=== PATIENT | female | born 1990 | race Caucasian/White ===

== ENCOUNTER → 2017-02-28 17:52 | Observation (INO) ==
[2017-02-28 16:50] LABS: Basophils % 0.2 %; Eosinophils # 0.2 K/mcL (0.0-0.6); Eosinophils % 1.2 %; Hematocrit 32.6 % (35.3-44.9); Hemoglobin 11.2 g/dL (11.5-15.4); Immature Granulocytes % 0.4 % (0-4); Lymphocytes # 2.4 K/mcL (0.6-4.6); Lymphocytes % 20.2 %; Mean Corpuscular HGB Conc 34.4 g/dL (31.6-35.5); Mean Corpuscular Hemoglobin 29.6 pg (28.0-33.3); Mean Platelet Volume 9.6 fL (9.4-12.4); Monocytes # 0.7 K/mcL (0.0-1.3); Monocytes % 5.7 %; Neutrophils # 8.7 K/mcL (1.6-8.9); Platelet Count 219 K/mcL (140-400); Red Blood Count 3.79 M/mcL (3.82-4.97); Red Cell Distribution Width 12.3 % (11.5-14.5); Segmented Neutrophils % 72.3 %
[2017-02-28 17:07] LABS: Alanine Aminotransferase 17 Units/L (0-55); Aspartate Amino Transferase 19 Units/L (5-34); BUN/Creatinine Ratio 16 (6-26); Blood Urea Nitrogen 9 mg/dL (7-20); Lactate Dehydrogenase 188 Units/L (159-327); Uric Acid 2.4 mg/dL (2.6-6.0); eGFR For African Americans > 60 (> 60); eGFR For Non-African Americans > 60 (> 60)
[2017-02-28 17:08] LABS: Protein/Creatinine Ratio,Urine 0.33 mg/mg (0-0.20)
[2017-02-28 17:28] LABS: Amphetamine Screen,Urine Negative ng/mL (Cutoff=1000); Barbiturate Screen,Urine Negative ng/mL (Cutoff=200); Benzodiazepines Screen,Urine Negative ng/mL (Cutoff=200); Cannabinoid Screen,Urine Negative ng/mL (Cutoff = 50); Cocaine Screen,Urine Negative ng/mL (Cutoff= 300); Opiate Screen,Urine Negative ng/mL (Cutoff=300); Phencyclidine Screen,Urine Negative ng/mL (Cutoff=25)
--- NOTE | 2017-02-28 17:35 | OB/GYN Progress Note ---
Date of Encounter: 02/28/17 Time of Encounter: 17:30 - Assessment and Plan (1) First in adolescent 16 years of age or older in third trimester Current Visit: Yes Status: Acute (2) 34 weeks gestation of Current Visit: Yes Status: Acute (3) Hypertension affecting in third trimester Current Visit: Yes Status: Acute Blood pressures stable PIH labs within normal limits patient will do serial blood pressures at home and will call if anything elevated. Subjective - Subjective Interval history: Patient is a 27-year-old 1 para 0 at 34 weeks who had been sent over from the office due to elevated blood pressures and weight gain. Patient had blood pressures of 140s over high 90s on 2 separate occasions but was unable to give us a urinalysis in the office. Because this is not what her blood pressures been running recommended presented to the hospital for PIH workup and serial blood pressures. She was not complaining of any headaches blurred vision or scotoma and she is asked to been on bedrest sleeping most the day. Patient has gained 7 pounds in 2 weeks but had no pitting edema. Patient's blood pressure on labor and delivery were all stable with nothing significantly elevated. PIH labs also came back normal only thing slightly abnormal was her protein creatinine ratio was 0.33. At this point I have no justification to keep her we do any other studies on her patient be discharged home and she will follow up in 1 week for with blood pressure. Antepartum ROS: other (Hypertension) Objective - Vital Signs Vital Signs: Intake and Output 02/28/17 02/28/17 02/28/17 07:59 15:59 23:59 Other: Weight 78.2 kg Patient Weight 02/28/17 23:59 Weight 78.2 kg - Exam FHR: category 1 FHR comments: heart tones 140s reactive no contraction seen Auscultation: bilateral: normal Abdomen: Present: normal appearance, gravid - Labs Labs: Abnormal lab results WBC 12.1 K/mcL (4.3-11.1) H 02/28/17 16:35 RBC 3.79 M/mcL (3.82-4.97) L 02/28/17 16:35 Hgb 11.2 g/dL (11.5-15.4) L 02/28/17 16:35 Hct 32.6 % (35.3-44.9) L 02/28/17 16:35 Uric Acid 2.4 mg/dL (2.6-6.0) L 02/28/17 16:35 Protein/Creatinin Ratio 0.33 mg/mg (0-0.20) H 02/28/17 16:35 Urine Total Protein 26 mg/dL (1-14) H 02/28/17 16:35
== END | disposition home or self-care (01) ==
LOC: 1NENULAB
PROVIDERS: ADMIT Obstetrics & Gynecology; ATTEND Obstetrics & Gynecology

== ENCOUNTER 2017-03-20 06:00 | Inpatient (IN) ==
[2017-03-20] MEDS ORDERED: miSOPROStol 25 MCG TABLET ONE (08:30)
[2017-03-20 09:56] LABS: Amphetamine Screen,Urine Negative ng/mL (Cutoff=1000); Barbiturate Screen,Urine Negative ng/mL (Cutoff=200); Benzodiazepines Screen,Urine Negative ng/mL (Cutoff=200); Cannabinoid Screen,Urine Negative ng/mL (Cutoff = 50); Cocaine Screen,Urine Negative ng/mL (Cutoff= 300); Opiate Screen,Urine Negative ng/mL (Cutoff=300); Phencyclidine Screen,Urine Negative ng/mL (Cutoff=25)
[2017-03-20 10:02] LABS: Hematocrit 33.5 % (35.3-44.9); Hemoglobin 11.3 g/dL (11.5-15.4); Mean Corpuscular Volume 86.1 fL (83.0-100.0); Red Blood Count 3.89 M/mcL (3.82-4.97)
[2017-03-20 10:03] LABS: Basophils % 0.2 %; Eosinophils # 0.1 K/mcL (0.0-0.6); Eosinophils % 1.1 %; Immature Granulocytes % 0.3 % (0-4); Lymphocytes # 2.7 K/mcL (0.6-4.6); Mean Corpuscular HGB Conc 33.7 g/dL (31.6-35.5); Mean Platelet Volume 10.2 fL (9.4-12.4); Monocytes # 0.6 K/mcL (0.0-1.3); Monocytes % 4.9 %; Neutrophils # 8.1 K/mcL (1.6-8.9); Platelet Count 229 K/mcL (140-400); Red Cell Distribution Width 12.8 % (11.5-14.5); Segmented Neutrophils % 70.5 %
[2017-03-20 10:04] LABS: Alanine Aminotransferase 14 Units/L (7-52); Aspartate Amino Transferase 17 Units/L (13-39); BUN/Creatinine Ratio 18 (6-26); Blood Urea Nitrogen 8 mg/dL (6-20); Lactate Dehydrogenase 184 Units/L (140-271); Uric Acid 2.7 mg/dL (2.3-7.6); eGFR For African Americans > 60 (> 60); eGFR For Non-African Americans > 60 (> 60)
[2017-03-20 10:12] LABS: Protein/Creatinine Ratio,Urine 0.32 mg/mg (0.00-0.20)
[2017-03-20] MEDS ORDERED: Ringers Solution, Lactated 1,000 ML ONE ×3 (11:27→16:15)
--- NOTE | 2017-03-20 11:43 | OB/GYN History & Physical ---
Date of Encounter: 03/20/17 Time of Encounter: 11:30 Assessment and Plan (1) 37 weeks gestation of Current visit: Yes Status: Acute (2) Gestational hypertension affecting first Current visit: Yes Status: Acute Patient will be induced with a Foster catheter and Cytotec 50 g by mouth plan is to anticipate normal spontaneous vaginal delivery. (3) Intrauterine growth restriction (IUGR) affecting care of mother, third trimester, single gestation Current visit: Yes Status: Acute (4) OLGA (amniotic fluid index) borderline low Current visit: Yes Status: Acute (5) First in adolescent 16 years of age or older in third trimester Current visit: No Status: Acute History of Present Illness HPI: Ms. Hernandez is a 27 year old female Para 0 at 37-0/7 Weeks Who Is Brought in for Induction of labor secondary to IUGR with baby at the 10 percentile and low amniotic fluid index of 6 cm. The patient has been running high blood pressures was sent to labor and delivery for PIH workup labs are normal except her protein creatinine ratio was elevated. She been getting weekly NSTs those have been normal. Patient was seen in the office and was complaining of headache and blurred vision blood pressure is elevated and is side this time to get delivered at 37 weeks due to gestational hypertension and being symptomatic. She denies any leaking of fluid is feeling baby move was not complaining of any contractions on admission. Patient is a positive, rubella positive and GBS negative Past Med Surg Social Fam HX - Past Medical History Source: patient, old records reviewed Medical history: no medical history Psychiatric history: depression - Past Surgical History Surgical History: other (Sinus surgery, wisdom teeth) - Social History Smoking Status: Never smoker Smokeless Tobacco Status: No Alcohol use: none Drug use: none Occupational status: employed Current living situation: Home - Independent Activity Level: Independent ambulation Recent Out of Country Travel Within the Last 8 Weeks: No Exposure or Possible Exposure to Illness During Travel: No - Family History Mother Adopted: No Living Status: Still Living Hx Family Cancer: Yes Hx Family Endocrine Disorder: Yes (thyroid condition) - Additional Family History Additional family history: Family history noncontributory at this time Obstetrical History - Pregnancies : 1 Para: 0 Medications and Allergies Vit Calc,Iron,Folic [ Vitamins] 1 tab PO DAILY 02/28/17 [ History] 3 Allergy/AdvReac Type Severity Reaction Status Date / Time Sulfa (Sulfonamide Allergy Swelling Verified 02/28/17 16:28 Antibiotics) of Lip/Tongue/Throat Review of System OB All systems PM: reviewed and no additional remarkable complaints except as stated - Neurological Nerological: other (Complaining of occasional headaches and blurred vision) Exam - Constitutional Constitutional: well developed, well nourished, no acute distress, average body habitus - HEENT HEENT: EOMI, PERRL - Neck Neck exam: full ROM - Lungs Respiratory exam: CTAB - Cardiovascular Cardiovascular exam: RRR - Abdomen Abdomen: Present: bowel sounds normal, gravid - Cervix Dilation: 1 Effacement: 80 Station: -2 (Foster catheter placed within the cervix 30 mL balloon inflated) Results Result Diagrams: 03/20/17 07:22 03/20/17 07:22 Abnormal lab results WBC 11.5 K/mcL (4.3-11.1) H 03/20/17 07:22 Hgb 11.3 g/dL (11.5-15.4) L 03/20/17 07:22 Hct 33.5 % (35.3-44.9) L 03/20/17 07:22 Creatinine 0.44 mg/dL (0.60-1.20) L 03/20/17 07:22 Protein/Creatinin Ratio 0.32 mg/mg (0.00-0.20) H 03/20/17 08:30 All other labs normal.
[2017-03-20] MEDS ORDERED: Epidural Premix (fent/bupiv) 110 ML EP SCH (12:00)
[2017-03-20] MEDS ORDERED: Epidural Premix (fent/bupiv) 110 ML EP ONE (12:03)
--- NOTE | 2017-03-20 12:51 | Anesthesia Evaluation PreOp ---
Date of Encounter: 03/20/17 Time of Encounter: 12:15 - Past History Planned Operation: adolph Cardiac History: Denies any Significant Hx Pulmonary History: Denies Any Significant HX COLD MILL INSPECTOR History: Denies Any Significant HX Other Medical History: Denies Any Significant HX Anesthesia History: No Prior Anesthetic Complications : Yes Test: Positive Alcohol Use: none, unknown Drug use: none Medications and Allergies Vit Calc,Iron,Folic [ Vitamins] 1 tab PO DAILY 02/28/17 [ History] 3 Allergy/AdvReac Type Severity Reaction Status Date / Time Sulfa (Sulfonamide Allergy Swelling Verified 02/28/17 16:28 Antibiotics) of Lip/Tongue/Throat - Meds/Allergy Pre-op Review Medications Reviewed: Yes Allergies Reviewed: Yes (sulfa) Beta Blockers on Current Med List: No Anesthesia Results - Labs 03/20/17 07:22 03/20/17 07:22 Anesthesia Exam Height: 63 Weight: 80 NPO (# of Hours): mn - HEENT Pupil (Motor): Pupils equal Mallampati: II Teeth: Normal Oral Opening: Greater than 3 - COLD MILL INSPECTOR LOC: Oriented COLD MILL INSPECTOR Motor: Normal RUE, Normal LUE, Normal RLE, Normal LLE, Normal Face COLD MILL INSPECTOR Sensory: Normal: RUE, LUE, RLE, LLE, Face - Cardiac Rhythm: Regular Murmur: None JVD: No Carotid Bruit: No - Pulmonary Breath Sounds: bilateral Clear Respiratory Effort: Symmetrical Anesthesia Assess/Plan ASA Score: 1 Modified [place] Scale for Level of Consciousness: Cooperative, oriented, and tranquil Anesthetic Plan: Regional Autologous Blood: No Monitoring Plan: Standard Monitors
--- NOTE | 2017-03-20 12:53 | Anesthesia Procedures ---
Date of Encounter: 03/20/17 Time of Encounter: 12:15 Procedures: Anesthesia - Epidural/Spinal Patient ID/Chart reviewed: Yes Patient examined: Yes OB Eval: Gestational age: 37 OB Eval: : 1 OB Eval: Hx Para: 0 OB Eval: Contractions: Non-stressed pattern Consent Obtained: Yes Supplemental Oxygen: None/Room Air Site Prep: Aseptic Technique, Sterile prep and drape, Povidone-Iodine 1% Patient position: upright Local Anesthetic: Lidocaine 1% Amount of Local Anesthetic used: 3 Touhy Needle Gauge: 18 Test Dose Result: Negative Loading Dose Administered: Thru Catheter Infusion Rate (mls/hr): [address]: Tegaderm, Tape Interspace Used: L4-L5 Loss of Resistance (JANE): Yes Blood: No CSF: No Paresthesia: No Vitals + FHT's: stable throughout see nursing record
--- NOTE | 2017-03-20 14:23 | OB Labor Progress Note ---
Date of Encounter: 03/20/17 Time of Encounter: 14:20 Labor Progress Note - Subjective Subjective: Patient along more comfortable now after her epidural not feeling the contractions like she was. Catheter has been out for approximately 3-4 hours - Cervix Cervix: 5/80/0 AROM clear fluid - Heart Tones Heart Tones: heart tones 140s reactive - [place]: Contractions every 2 minutes - Plan Plan: Continue current care and plan is to anticipate vaginal delivery
[2017-03-20] MEDS ORDERED: ROPIVACAINE HCL/PF 0.5% 30 ML VIAL ONE (15:02)
[2017-03-20] MEDS ORDERED: Oxytocin 20 units/ LR 1000 mL 20 UNIT/1,000 ML BAG IVC ONE ×2 (17:02→19:42)
--- NOTE | 2017-03-20 17:17 | OB Labor Progress Note ---
Date of Encounter: 03/20/17 Time of Encounter: 17:15 Labor Progress Note - Subjective Subjective: Patient comfortable after her second epidural by feeling anything at this time. - Cervix Cervix: 9/100/0 - Heart Tones Heart Tones: heart tones 140s reactive - [place]: Traction every 2 minutes - Plan Plan: Anticipate normal spontaneous vaginal delivery
--- NOTE | 2017-03-20 19:03 | OB/GYN Procedure Note ---
Delivery - Delivery Date: 03/20/17 Provider: Toy Hurst Intrapartum events: none Delivery induction: bledsoe, misoprostol Delivery augmentation: rupture of membranes Delivery monitor: external FHT, external uterine Anesthesia: epidural Estimated Blood Loss: 200 - Infant (s) A Delivery Date: 03/20/17 Delivery Time: 18:33 Presentation: vertex Position: CASE Route of delivery: Gender: Female Viability: Viable Pounds: 4 Ounces: 14 Weight Gram: 2.225 kg at 1 minute: 8 at 5 mins: 9 Shoulder Dystocia: not encountered Specimens collected: cord blood Placenta: spontaneous - Repair Episiotomy: none Laceration Description: Perineal - 2nd Degree - Complications Delivery complications: none Delivery comments: Patient is a 27-year-old 1 para 0 at 37-0/7 weeks was borderline for induction of labor secondary to gestational hypertension with associated IUGR and low amniotic fluid index. Patient has fallen off the growth curve ultrasound showed the baby to be right at the 10th percentile with amniotic fluid index at 6 cm. She been getting NSTs weekly. Patient also has had hypertension we have seen her on labor and delivery where PIH labs were normal but her protein creatinine ratio was slightly elevated. Patient was seen in the office and blood pressure was elevated she was complaining of headaches and blurred vision. We did do a biophysical on the patient amniotic fluid index was still 6 and was decided this time when she had 37 weeks we get the patient delivered. She was brought to labor and delivery with a Bledsoe catheter was placed and 50 g of Cytotec by mouth was given. Bledsoe catheter follow-up couple hours later she was geovanni every 2 minutes. She did receive an epidural she was artificially ruptured when she was 5 cm and progressed appropriately. Patient became complete and pushed approximately 3 times delivering a viable female infant in left occiput anterior presentation at 1833. There was no nuchal cord, no meconium, infant was bulb suctioned on the abdomen. Apgars were 8 at 1 minute, 9 at 5 minutes, infant weight was 4 lbs. 14 oz. Placenta was then delivered spontaneously with a three-vessel cord, solution specialist Dr. Hurst, anesthesia epidural, estimated blood loss 200 mL. She had a second-degree perineal laceration repaired with 3-0 Vicryl in usual fashion. Cervix and vagina was visualized intact she will be observed 2 hours before being taken floor. - Disposition Mom disposition: stable in LDR disposition: stable in LDR
[2017-03-20] MEDS ORDERED: Oxytocin 20 units/ LR 1000 mL 20 UNIT/1,000 ML BAG IVC SCH (21:16)
[2017-03-20] MEDS ORDERED: Acetaminophen 325 MG TABLET PO PRN (21:16)
[2017-03-20] MEDS ORDERED: Measles/Mumps/Rubella Vacc 0.5 ML VIAL SQ PRN (21:16)
[2017-03-20] MEDS: Ibuprofen 600 MG TABLET PO PRN (21:44)
[2017-03-20 22:24] LABS: Basophils % 0.1 %; Eosinophils % 0.2 %; Hematocrit 34.3 % (35.3-44.9); Hemoglobin 11.4 g/dL (11.5-15.4); Immature Granulocytes % 0.7 % (0-4); Lymphocytes # 2.1 K/mcL (0.6-4.6); Lymphocytes % 9.4 %; Mean Corpuscular HGB Conc 33.2 g/dL (31.6-35.5); Mean Corpuscular Hemoglobin 28.6 pg (28.0-33.3); Mean Corpuscular Volume 86.2 fL (83.0-100.0); Mean Platelet Volume 10.1 fL (9.4-12.4); Monocytes % 4.5 %; Neutrophils # 19.2 K/mcL (1.6-8.9); Platelet Count 199 K/mcL (140-400); Red Blood Count 3.98 M/mcL (3.82-4.97); Red Cell Distribution Width 12.5 % (11.5-14.5); Segmented Neutrophils % 85.1 %
[2017-03-20 22:38] LABS: Eosinophils # 0.1 K/mcL (0.0-0.6)
[2017-03-20 22:41] LABS: Alanine Aminotransferase 13 Units/L (7-52); Aspartate Amino Transferase 21 Units/L (13-39); BUN/Creatinine Ratio 11 (6-26); Blood Urea Nitrogen 4 mg/dL (6-20); Lactate Dehydrogenase 196 Units/L (140-271); Uric Acid 2.8 mg/dL (2.3-7.6); eGFR For African Americans > 60 (> 60); eGFR For Non-African Americans > 60 (> 60)
[2017-03-20] MEDS: *HR* HYDROcodone/Acet 5/325 mg TABLET PO PRN (22:57)
[2017-03-21] MEDS: Ibuprofen 600 MG TABLET PO PRN ×2 (03:49→13:58)
[2017-03-21 07:50] LABS: Basophils % 0.1 %; Eosinophils # 0.2 K/mcL (0.0-0.6); Hematocrit 32.1 % (35.3-44.9); Hemoglobin 10.5 g/dL (11.5-15.4); Immature Granulocytes % 0.5 % (0-4); Lymphocytes # 2.5 K/mcL (0.6-4.6); Lymphocytes % 17.2 %; Mean Corpuscular HGB Conc 32.7 g/dL (31.6-35.5); Mean Corpuscular Hemoglobin 28.2 pg (28.0-33.3); Mean Corpuscular Volume 86.3 fL (83.0-100.0); Mean Platelet Volume 10.2 fL (9.4-12.4); Monocytes # 0.9 K/mcL (0.0-1.3); Monocytes % 6.4 %; Neutrophils # 10.8 K/mcL (1.6-8.9); Platelet Count 199 K/mcL (140-400); Red Blood Count 3.72 M/mcL (3.82-4.97); Red Cell Distribution Width 12.8 % (11.5-14.5); Segmented Neutrophils % 74.8 %
[2017-03-21 08:09] LABS: Alanine Aminotransferase 12 Units/L (7-52); Aspartate Amino Transferase 21 Units/L (13-39); BUN/Creatinine Ratio 18 (6-26); Blood Urea Nitrogen 7 mg/dL (6-20); Lactate Dehydrogenase 212 Units/L (140-271); Uric Acid 2.6 mg/dL (2.3-7.6); eGFR For African Americans > 60 (> 60); eGFR For Non-African Americans > 60 (> 60)
--- NOTE | 2017-03-21 08:18 | Discharge Summary ---
Date of Encounter: 03/21/17 Time of Encounter: 08:10 - Discharge Diagnosis (1) 37 weeks gestation of Priority: Secondary Status: Acute (2) Gestational hypertension affecting first Priority: Secondary Status: Acute (3) Intrauterine growth restriction (IUGR) affecting care of mother, third trimester, single gestation Priority: Secondary Status: Acute (4) OLGA (amniotic fluid index) borderline low Priority: Secondary Status: Acute (5) First in adolescent 16 years of age or older in third trimester Priority: Secondary Status: Acute (6) Status post vaginal delivery Priority: Primary Status: Acute - Discharge Medications Prescriptions: HYDROcodone/Acet 5/325 mg [[place] 5-325 mg] 1 tab PO Q6HR PRN #28 tablet PRN Reason: Moderate Pain (4-6) Ibuprofen [Motrin] 600 mg PO Q6HR PRN #30 tablet PRN Reason: Cramping Home Medications: Vit Calc,Iron,Folic [ Vitamins] 1 tab PO DAILY 02/28/17 [ History] HYDROcodone/Acet 5/325 mg [[place] 5-325 mg] 1 tab PO Q6HR PRN #28 tablet [Rx] Ibuprofen [Motrin] 600 mg PO Q6HR PRN #30 tablet 03/21/17 [Rx] Allergies/Adverse Reactions: 3 Allergy/AdvReac Type Severity Reaction Status Date / Time Sulfa (Sulfonamide Allergy Swelling Verified 02/28/17 16:28 Antibiotics) of Lip/Tongue/Throat Data Procedures and tests throughout hospitalization: Laboratory Tests 03/20/17 03/20/17 03/20/17 07:22 07:22 07:27 WBC 11.5 H RBC 3.89 Hgb 11.3 L Hct 33.5 L MCV 86.1 MCH 29.0 MCHC 33.7 RDW 12.8 Plt Count 229 MPV 10.2 Immature Gran % 0.3 Seg Neutrophils % 70.5 Lymphocytes % 23.0 Monocytes % 4.9 Eosinophils % 1.1 Basophils % 0.2 Neutrophils # 8.1 Lymphocytes # 2.7 Monocytes # 0.6 Eosinophils # 0.1 Basophils # 0.0 BUN 8 Creatinine 0.44 L Est GFR ( Amer) > 60 Est GFR (Non-Af Amer) > 60 BUN/Creatinine Ratio 18 Uric Acid 2.7 AST 17 ALT 14 Lactate Dehydrogenase 184 Urine Creatinine Protein/Creatinin Ratio Urine Total Protein Urine Opiates Screen Negative Ur Barbiturates Screen Negative Ur Phencyclidine Scrn Negative Ur Amphetamines Screen Negative U Benzodiazepines Scrn Negative Urine Cocaine Screen Negative U Marijuana (THC) Screen Negative 03/20/17 03/20/17 03/20/17 08:30 22:18 22:18 WBC 22.6 H D RBC 3.98 Hgb 11.4 L Hct 34.3 L MCV 86.2 MCH 28.6 MCHC 33.2 RDW 12.5 Plt Count 199 MPV 10.1 Immature Gran % 0.7 Seg Neutrophils % 85.1 Lymphocytes % 9.4 Monocytes % 4.5 Eosinophils % 0.2 Basophils % 0.1 Neutrophils # 19.2 H Lymphocytes # 2.1 Monocytes # 1.0 Eosinophils # 0.1 Basophils # 0.0 BUN 4 L Creatinine 0.38 L Est GFR ( Amer) > 60 Est GFR (Non-Af Amer) > 60 BUN/Creatinine Ratio 11 Uric Acid 2.8 AST 21 ALT 13 Lactate Dehydrogenase 196 Urine Creatinine 114 Protein/Creatinin Ratio 0.32 H Urine Total Protein 36 Urine Opiates Screen Ur Barbiturates Screen Ur Phencyclidine Scrn Ur Amphetamines Screen U Benzodiazepines Scrn Urine Cocaine Screen U Marijuana (THC) Screen 03/21/17 03/21/17 07:40 07:40 WBC 14.5 H RBC 3.72 L Hgb 10.5 L Hct 32.1 L MCV 86.3 MCH 28.2 MCHC 32.7 RDW 12.8 Plt Count 199 MPV 10.2 Immature Gran % 0.5 Seg Neutrophils % 74.8 Lymphocytes % 17.2 Monocytes % 6.4 Eosinophils % 1.0 Basophils % 0.1 Neutrophils # 10.8 H Lymphocytes # 2.5 Monocytes # 0.9 Eosinophils # 0.2 Basophils # 0.0 BUN 7 Creatinine 0.40 L Est GFR ( Amer) > 60 Est GFR (Non-Af Amer) > 60 BUN/Creatinine Ratio 18 Uric Acid 2.6 AST 21 ALT 12 Lactate Dehydrogenase 212 Urine Creatinine Protein/Creatinin Ratio Urine Total Protein Urine Opiates Screen Ur Barbiturates Screen Ur Phencyclidine Scrn Ur Amphetamines Screen U Benzodiazepines Scrn Urine Cocaine Screen U Marijuana (THC) Screen Labs on day of discharge: Labs from last 24 hours 03/21/17 03/21/17 03/20/17 07:40 07:40 22:18 WBC 14.5 H RBC 3.72 L Hgb 10.5 L Hct 32.1 L MCV 86.3 MCH 28.2 MCHC 32.7 RDW 12.8 Plt Count 199 MPV 10.2 Immature Gran % 0.5 Seg Neutrophils % 74.8 Lymphocytes % 17.2 Monocytes % 6.4 Eosinophils % 1.0 Basophils % 0.1 Neutrophils # 10.8 H Lymphocytes # 2.5 Monocytes # 0.9 Eosinophils # 0.2 Basophils # 0.0 BUN 7 4 L Creatinine 0.40 L 0.38 L Est GFR ( Amer) > 60 > 60 Est GFR (Non-Af Amer) > 60 > 60 BUN/Creatinine Ratio 18 11 Uric Acid 2.6 2.8 AST 21 21 ALT 12 13 Lactate Dehydrogenase 212 196 Urine Creatinine Protein/Creatinin Ratio Urine Total Protein Urine Opiates Screen Ur Barbiturates Screen Ur Phencyclidine Scrn Ur Amphetamines Screen U Benzodiazepines Scrn Urine Cocaine Screen U Marijuana (THC) Screen 03/20/17 03/20/17 03/20/17 22:18 08:30 07:27 WBC 22.6 H D RBC 3.98 Hgb 11.4 L Hct 34.3 L MCV 86.2 MCH 28.6 MCHC 33.2 RDW 12.5 Plt Count 199 MPV 10.1 Immature Gran % 0.7 Seg Neutrophils % 85.1 Lymphocytes % 9.4 Monocytes % 4.5 Eosinophils % 0.2 Basophils % 0.1 Neutrophils # 19.2 H Lymphocytes # 2.1 Monocytes # 1.0 Eosinophils # 0.1 Basophils # 0.0 BUN Creatinine Est GFR ( Amer) Est GFR (Non-Af Amer) BUN/Creatinine Ratio Uric Acid AST ALT Lactate Dehydrogenase Urine Creatinine 114 Protein/Creatinin Ratio 0.32 H Urine Total Protein 36 Urine Opiates Screen Negative Ur Barbiturates Screen Negative Ur Phencyclidine Scrn Negative Ur Amphetamines Screen Negative U Benzodiazepines Scrn Negative Urine Cocaine Screen Negative U Marijuana (THC) Screen Negative 03/20/17 03/20/17 07:22 07:22 WBC 11.5 H RBC 3.89 Hgb 11.3 L Hct 33.5 L MCV 86.1 MCH 29.0 MCHC 33.7 RDW 12.8 Plt Count 229 MPV 10.2 Immature Gran % 0.3 Seg Neutrophils % 70.5 Lymphocytes % 23.0 Monocytes % 4.9 Eosinophils % 1.1 Basophils % 0.2 Neutrophils # 8.1 Lymphocytes # 2.7 Monocytes # 0.6 Eosinophils # 0.1 Basophils # 0.0 BUN 8 Creatinine 0.44 L Est GFR ( Amer) > 60 Est GFR (Non-Af Amer) > 60 BUN/Creatinine Ratio 18 Uric Acid 2.7 AST 17 ALT 14 Lactate Dehydrogenase 184 Urine Creatinine Protein/Creatinin Ratio Urine Total Protein Urine Opiates Screen Ur Barbiturates Screen Ur Phencyclidine Scrn Ur Amphetamines Screen U Benzodiazepines Scrn Urine Cocaine Screen U Marijuana (THC) Screen Date of admission: 03/20/17 06:05 Primary care physician: PCP FANTA Consults: 03/20/17 21:16 Consult to Production Superintendent Hydro [CONS] Routine Comment: Vaginal delivery, consult needed Discharging clinician: Toy Hurst Anticipated date of discharge: 03/21/17 - Patient Status Disposition: Home, Self-Care Condition: Good Functional capacity at discharge: independent ambulation Overall status at discharge: patient is progressing back to baseline - Discharge Instructions Follow Up With: FANTA,PCP [Primary Care Provider] - Toy Hurst DO [Partnered Physician] - - Diet and Activity Activity: increase activity as tolerated Diet: advance to your usual diet Hospital Course Procedures: status post vaginal delivery Reason for admission: other (IUGR, low amniotic fluid index, gestational hypertension) Delivery: Episiotomy: none Laceration: 2nd degree Other procedures: none complications: none Discharge diagnosis: IUP at term delivered baby: female Hospital course: Patient is a 27-year-old female at 37 weeks who was brought in for induction of labor due to IUGR low amniotic fluid index and gestational hypertension. Patient baby had fallen off the growth curve was measuring at the 10th percentile and amniotic fluid index was 6cm. Patient's blood pressures had been elevated and she had been seen on labor and delivery for this PIH labs were stable but her protein creatinine ratio was slightly elevated. Patient has been getting weekly NSTs seen in the office where she was noted to still have low fluid and is complaining of headaches and blurred vision. Because her blood pressure was still elevated decided to deliver at 37 weeks for gestational hypertension. She was brought to labor and delivery for the catheter and Cytotec was placed. Catheter fell out soon afterwards since she was 4 cm epidural was placed she was artificially ruptured for clear fluid noted. No other augmentation was needed patient progressed to complete and pushed approximately 3 times and had a normal spontaneous vaginal delivery patient's hospital course was unremarkable patient's blood pressure remained stable and she was discharged home on hospital day #1 with prescription for Vicodin 5 mg #28 600 mg #30 and she will follow up in the office in 4 weeks patient's condition at time of discharge was stable. Time Attestation: Total time spent providing and/or coordinating discharge services: Exam - Constitutional Vitals: Temp Pulse Resp BP Pulse Ox 98.3 F 84 16 109/70 96 03/21/17 03:25 03/21/17 03:25 03/21/17 03:25 03/21/17 03:25 03/21/17 03:25 General appearance IM: A&O X 3 - Respiratory Respiratory exam: Present: CTAB - Cardiovascular Cardiovascular exam IM: Present: RRR - GI/Abdominal GI/Abdominal exam IM: normal bowel sounds - Rectal Rectal exam: deferred - Uterus Position: At Umbilicus
[2017-03-21] MEDS: *HR* HYDROcodone/Acet 5/325 mg TABLET PO PRN ×2 (08:54→18:23)
[2017-03-21] MEDS ORDERED: NON-FORMULARY MEDICATION 1 EACH EACH (Prenatal Vit Calc,Iron,Folic [Prenatal Vitamins] 1 T PO SCH (09:00)
[2017-03-21] MEDS ORDERED: Prenatal Vit/FA 1 EACH TABLET PO SCH (09:00)
[2017-03-21 17:03] VITALS: BP 115/76
== END 2017-03-21 21:00 | disposition home or self-care (01) | DRG 775 ==
LOC: 1NENULAB 06:05 → 1NENUOBS 21:16
PROVIDERS: ADMIT Obstetrics & Gynecology; ATTEND Obstetrics & Gynecology